=== PATIENT | male | born 1980 | race Hispanic/Latino ===

== ENCOUNTER 2019-03-05 14:40 | Observation (INO) | payer SELFPAY ==
[2019-03-05 15:20] LABS: Basophils % (Auto) 0.5 % (0.0-1.8); Eosinophils # (Auto) 0.2 K/mm3 (0.0-0.4); Eosinophils % (Auto) 2.4 % (0.0-4.3); Hematocrit 44.9 % (35.5-45.6); Hemoglobin 15.4 gm/dl (11.8-15.2); Lymphocytes # (Auto) 1.6 K/mm3 (1.2-5.4); Lymphocytes % (Auto) 20.5 % (13.4-35.0); Mean Corpuscular HGB Conc 34 % (32-34); Mean Corpuscular Volume 91 fl (84-94); Monocytes # (Auto) 0.5 K/mm3 (0.0-0.8); Monocytes % (Auto) 7.1 % (0.0-7.3); Platelet Count 324 K/mm3 (140-440); Red Blood Count 4.96 M/mm3 (3.65-5.03); Red Cell Distribution Width 13.2 % (13.2-15.2)
--- NOTE | 2019-03-05 15:24 | XRay Report ---
CHEST 1 VIEW 2:57 PM INDICATION / CLINICAL INFORMATION: Respiratory arrest. COMPARISON: None available. FINDINGS: SUPPORT DEVICES: None. HEART / MEDIASTINUM: The heart size and pulmonary vasculature are normal. LUNGS / PLEURA: No significant pulmonary or pleural abnormality. No pneumothorax. ADDITIONAL FINDINGS: There is mild gaseous distention of the stomach. IMPRESSION: No acute pulmonary disease. Signer Name: Maxx Rodriguez MD Signed: 03/05/2019 3:20 PM Workstation Name: [id number]
[2019-03-05 15:30] LABS: INR 1.03 (0.87-1.13)
[2019-03-05 15:31] LABS: Partial Thromboplastin Time 26.4 Sec. (24.2-36.6)
[2019-03-05 15:42] LABS: Alanine Aminotransferase 26 units/L (7-56); Albumin 4.2 g/dL (3.9-5); BUN/Creatinine Ratio 7; Blood Urea Nitrogen 10 mg/dL (9-20); Calcium 8.6 mg/dL (8.4-10.2); Hemolysis Index 30
--- NOTE | 2019-03-05 16:26 | Emergency Department Report ---
ED General Adult HPI - General Chief complaint: Altered Mental Status Stated complaint: OVERDOSE Time Seen by Provider: 03/05/19 14:59 Source: EMS Mode of arrival: Stretcher Limitations: No Limitations - History of Present Illness Initial comments: The patient presents to the emergency department via EMS for chief complaint cardiac arrest. Patient was found laying down a parking lot of [place] when police were notified. Upon their arrival the patient had no pulse and was unresponsive and chest compressions were started. Patient had return of s pontaneous circulation secondary to chest compressions. Upon EMS arrival the patient's glucose was less than 30 which was treated by EMS. Patient was also given 1 mg of Narcan and became more responsive. Patient is arousable to sternal rub but otherwise obtunded. -: Sudden Improves with: none Worsens with: none Associated Symptoms: denies other symptoms Treatments Prior to Arrival: none - Related Data Allergies Allergy/AdvReac Type Severity Reaction Status Date / Time No Known Allergies Allergy Verified 03/05/19 17:40 ED Review of Systems ROS: Stated complaint: OVERDOSE Other details as noted in HPI Comment: Unobtainable due to pts medical conditions ED Past Medical Hx - Past Medical History Previous Medical History?: No - Surgical History Past Surgical History?: No - Social History Smoking Status: Unknown if ever smoked Substance Use Type: None ED Physical Exam - General Limitations: No Limitations General appearance: obtunded - Head Head exam: Present: atraumatic, normocephalic - Eye Eye exam: Present: other (pinpoint pupils) - ENT ENT exam: Present: mucous membranes dry - Respiratory Respiratory exam: Present: other (diminished breath sounds throughout) - Cardiovascular Cardiovascular Exam: Present: normal rhythm, tachycardia - GI/Abdominal GI/Abdominal exam: Present: soft, normal bowel sounds. Absent: distended, tenderness - Neurological Exam Neurological exam: Present: other (patient is obtunded and arousable to sternal rub) - Psychiatric Psychiatric exam: Present: other (not able to completely assess due to patient's condition) - Skin Skin exam: Present: warm, dry, intact, normal color. Absent: rash ED Course Vital Signs 03/05/19 03/05/19 03/05/19 14:36 14:40 14:46 Pulse Rate 113 H 105 H 102 H Respiratory 15 20 26 H Rate Blood Pressure 143/95 143/95 Blood Pressure [Right] O2 Sat by Pulse 95 96 Oximetry 03/05/19 03/05/19 03/05/19 15:13 15:15 15:22 Pulse Rate 98 H 99 H 90 Respiratory 24 20 Rate Blood Pressure 136/89 Blood Pressure 136/89 [Right] O2 Sat by Pulse 96 95 Oximetry 03/05/19 03/05/19 03/05/19 15:30 15:45 16:10 Pulse Rate 97 H 96 H Respiratory 23 25 H Rate Blood Pressure 126/87 127/76 136/89 Blood Pressure [Right] O2 Sat by Pulse 97 96 96 Oximetry 03/05/19 03/05/19 03/05/19 16:15 16:30 16:45 Pulse Rate Respiratory Rate Blood Pressure 118/70 122/64 131/60 Blood Pressure [Right] O2 Sat by Pulse Oximetry 03/05/19 03/05/19 03/05/19 17:14 17:15 17:30 Pulse Rate 98 H 91 H 95 H Respiratory 17 22 Rate Blood Pressure 131/60 120/65 111/75 Blood Pressure [Right] O2 Sat by Pulse 88 96 Oximetry 03/05/19 03/05/19 03/05/19 18:00 18:30 19:40 Pulse Rate 88 100 H 98 H Respiratory 24 24 22 Rate Blood Pressure 120/78 107/48 Blood Pressure 132/73 [Right] O2 Sat by Pulse 99 95 94 Oximetry ED Medical Decision Making - Lab Data Result diagrams: 03/05/19 14:45 03/05/19 14:45 Lab Results 03/05/19 03/05/19 03/05/19 Range/Units 14:45 14:45 14:45 WBC 7.7 (4.5-11.0) K/mm3 RBC 4.96 (3.65-5.03) M/mm3 Hgb 15.4 H (11.8-15.2) gm/dl Hct 44.9 (35.5-45.6) % MCV 91 (84-94) fl MCH 31 (28-32) pg MCHC 34 (32-34) % RDW 13.2 (13.2-15.2) % Plt Count 324 (140-440) K/mm3 Lymph % (Auto) 20.5 (13.4-35.0) % Sebastian % (Auto) 7.1 (0.0-7.3) % Eos % (Auto) 2.4 (0.0-4.3) % Baso % (Auto) 0.5 (0.0-1.8) % Lymph # 1.6 (1.2-5.4) K/mm3 Sebastian # 0.5 (0.0-0.8) K/mm3 Eos # 0.2 (0.0-0.4) K/mm3 Baso # 0.0 (0.0-0.1) K/mm3 Seg Neutrophils % 69.5 (40.0-70.0) % Seg Neutrophils # 5.4 (1.8-7.7) K/mm3 PT 13.6 (12.2-14.9) Sec. INR 1.03 (0.87-1.13) APTT 26.4 (24.2-36.6) Sec. Sodium 138 (137-145) mmol/L Potassium 4.2 (3.6-5.0) mmol/L Chloride 97.0 L (98-107) mmol/L Carbon Dioxide 27 (22-30) mmol/L Anion Gap 18 mmol/L BUN 10 (9-20) mg/dL Creatinine 1.5 (0.8-1.5) mg/dL Estimated GFR 52 ml/min BUN/Creatinine Ratio 7 % Glucose 345 H (75-100) mg/dL Calcium 8.6 (8.4-10.2) mg/dL Total Bilirubin 0.20 (0.1-1.2) mg/dL AST 37 (5-40) units/L ALT 26 (7-56) units/L Alkaline Phosphatase 70 (35-129) units/L Total Creatine Kinase (55-170) units/L Troponin T < 0.010 (0.00-0.029) ng/mL NT-Pro-B Natriuret Pep 146.0 (0-450) pg/mL Total Protein 7.0 (6.3-8.2) g/dL Albumin 4.2 (3.9-5) g/dL Albumin/Globulin Ratio 1.5 % Salicylates (2.8-20.0) mg/dL Acetaminophen (10.0-30.0) ug/mL Plasma/Serum Alcohol (0-0.07) % 01/29/20 01/29/20 01/29/20 Range/Units 14:45 14:45 14:45 WBC (4.5-11.0) K/mm3 RBC (3.65-5.03) M/mm3 Hgb (11.8-15.2) gm/dl Hct (35.5-45.6) % MCV (84-94) fl MCH (28-32) pg MCHC (32-34) % RDW (13.2-15.2) % Plt Count (140-440) K/mm3 Lymph % (Auto) (13.4-35.0) % Sebastian % (Auto) (0.0-7.3) % Eos % (Auto) (0.0-4.3) % Baso % (Auto) (0.0-1.8) % Lymph # (1.2-5.4) K/mm3 Sebastian # (0.0-0.8) K/mm3 Eos # (0.0-0.4) K/mm3 Baso # (0.0-0.1) K/mm3 Seg Neutrophils % (40.0-70.0) % Seg Neutrophils # (1.8-7.7) K/mm3 PT (12.2-14.9) Sec. INR (0.87-1.13) APTT (24.2-36.6) Sec. Sodium (137-145) mmol/L Potassium (3.6-5.0) mmol/L Chloride (98-107) mmol/L Carbon Dioxide (22-30) mmol/L Anion Gap mmol/L BUN (9-20) mg/dL Creatinine (0.8-1.5) mg/dL Estimated GFR ml/min BUN/Creatinine Ratio % Glucose (75-100) mg/dL Calcium (8.4-10.2) mg/dL Total Bilirubin (0.1-1.2) mg/dL AST (5-40) units/L ALT (7-56) units/L Alkaline Phosphatase (35-129) units/L Total Creatine Kinase 921 H (55-170) units/L Troponin T (0.00-0.029) ng/mL NT-Pro-B Natriuret Pep (0-450) pg/mL Total Protein (6.3-8.2) g/dL Albumin (3.9-5) g/dL Albumin/Globulin Ratio % Salicylates < 0.3 L (2.8-20.0) mg/dL Acetaminophen < 5.0 L (10.0-30.0) ug/mL Plasma/Serum Alcohol (0-0.07) % 03/05/19 03/05/19 Range/Units 14:45 16:23 WBC (4.5-11.0) K/mm3 RBC (3.65-5.03) M/mm3 Hgb (11.8-15.2) gm/dl Hct (35.5-45.6) % MCV (84-94) fl MCH (28-32) pg MCHC (32-34) % RDW (13.2-15.2) % Plt Count (140-440) K/mm3 Lymph % (Auto) (13.4-35.0) % Sebastian % (Auto) (0.0-7.3) % Eos % (Auto) (0.0-4.3) % Baso % (Auto) (0.0-1.8) % Lymph # (1.2-5.4) K/mm3 Sebastian # (0.0-0.8) K/mm3 Eos # (0.0-0.4) K/mm3 Baso # (0.0-0.1) K/mm3 Seg Neutrophils % (40.0-70.0) % Seg Neutrophils # (1.8-7.7) K/mm3 PT (12.2-14.9) Sec. INR (0.87-1.13) APTT (24.2-36.6) Sec. Sodium (137-145) mmol/L Potassium (3.6-5.0) mmol/L Chloride (98-107) mmol/L Carbon Dioxide (22-30) mmol/L Anion Gap mmol/L BUN (9-20) mg/dL Creatinine (0.8-1.5) mg/dL Estimated GFR ml/min BUN/Creatinine Ratio % Glucose (75-100) mg/dL Calcium (8.4-10.2) mg/dL Total Bilirubin (0.1-1.2) mg/dL AST (5-40) units/L ALT (7-56) units/L Alkaline Phosphatase (35-129) units/L Total Creatine Kinase (55-170) units/L Troponin T 0.016 (0.00-0.029) ng/mL NT-Pro-B Natriuret Pep (0-450) pg/mL Total Protein (6.3-8.2) g/dL Albumin (3.9-5) g/dL Albumin/Globulin Ratio % Salicylates (2.8-20.0) mg/dL Acetaminophen (10.0-30.0) ug/mL Plasma/Serum Alcohol < 0.01 (0-0.07) % - EKG Data -: EKG Interpreted by Me EKG shows normal: sinus rhythm Rate: normal - Radiology Data Radiology results: report reviewed - Medical Decision Making On repeat examination 7:15 PM the patient is completely alert and oriented 3 Will be admitted for further evaluation and monitoring secondary to patient's cardiac arrest was likely secondary to drug overdose Critical Care Time: Yes Critical care time in (mins) excluding proc time.: 35 Critical care attestation.: If time is entered above; I have spent that time in minutes in the direct care of this critically ill patient, excluding procedure time. ED Disposition Clinical Impression: Cardiac arrest, Drug overdose Disposition: [id number] OP ADMIT IP TO THIS HOSP Is pt being admited?: Yes Does the pt Need Aspirin: No Condition: Fair
--- NOTE | 2019-03-05 16:53 | Cat Scan Report ---
CT head/brain wo con INDICATION / CLINICAL INFORMATION: 38 years Male; unresponsive. TECHNIQUE: Routine CT head without contrast. All CT scans at this location are performed using CT dos e reduction for ALARA by means of automated exposure control. COMPARISON: None. FINDINGS: BRAIN / INTRACRANIAL CONTENTS: No acute hemorrhage, mass effect, midline shift, hydrocephalus, or acu te, large territorial infarct. No chronic infarct or atrophy appreciated. No significant white matter abnormality. CRANIOCERVICAL JUNCTION: No significant abnormality. ORBITS: No significant abnormality of visualized orbits. SINUSES / MASTOIDS: Small mucous retention cyst/polyp seen in the right maxillary antrum. There is mi ld mucosal thickening in the ethmoids. ADDITIONAL FINDINGS: None. IMPRESSION: 1. No focal mass, hemorrhage, hydrocephalus, or acute, large territorial infarct. Signer Name: Lee Thornton MD, III Signed: 03/05/2019 4:49 PM Workstation Name: [id number]
--- NOTE | 2019-03-05 17:40 | Cat Scan Report ---
CT cervical spine wo con INDICATION / CLINICAL INFORMATION: 38 years Male; unresponsive/injury. TECHNIQUE: Axial CT images of the cervical spine were obtained. Sagittal and coronal reformatted images were pr oduced. All CT scans at this location are performed using CT dose reduction for ALARA by means of aut omated exposure control. COMPARISON: None available. FINDINGS: POST-SURGICAL CHANGES: None. ALIGNMENT: Normal cervical lordosis seen without significant scoliosis. VERTEBRAE: No signs of fracture. Vertebral bodies are grossly normal in height throughout. Mild osse ous foraminal narrowing seen on the left at C3-4 from facet hypertrophy. No significant osseous emma inal narrowing appreciated on the right. Anterior spondylosis seen at C4-5 and C5-C6, as well as C6-7. INTRAVERTEBRAL DISCS: Minimal disc disease seen at various levels with no dominant herniation. Overal l, no significant canal stenosis noted. PARASPINAL SOFT TISSUES: No significant abnormality. ADDITIONAL FINDINGS: Mucous retention cyst/polyp seen in the right maxillary antrum. There is mild to moderate mucosal thickening in the mastoids on the left. IMPRESSION: 1. No signs of acute bony trauma to the cervical spine. Signer Name: Lee Thornton MD, III Signed: 03/05/2019 5:36 PM Workstation Name: [email or web address]
[2019-03-05] MEDS ORDERED: SODIUM CHLORIDE 0.9% 1000 ML 2,000 ML ONE (17:41)
[2019-03-05] MEDS ORDERED: SODIUM CHLORIDE 0.9% 1000 ML 1,000 ML IV ONE ×2 (17:43)
[2019-03-05 20:39] LABS: Bilirubin,Urine NEG (Negative); Blood,Urine MOD (Negative); Color,Urine Yellow (Yellow); Mucus,Urine FEW /HPF; Protein,Urine <15 mg/dL mg/dL (Negative); Urobilinogen,Urine < 2.0 mg/dL (<2.0)
[2019-03-05 20:43] LABS: Benzodiazepines Screen,Urine PRESUMPTIVE NEGATIVE; Cocaine Screen,Urine PRESUMPTIVE NEGATIVE; Methadone Screen,Urine PRESUMPTIVE NEGATIVE; Opiate Screen,Urine PRESUMPTIVE NEGATIVE
[2019-03-05 20:55] LABS: Amphetamine Screen,Urine PRESUMPTIVE POSITIVE; Cannabinoid Screen,Urine PRESUMPTIVE POSITIVE
[2019-03-05] MEDS ORDERED: ONDANSETRON 4 MG/2 ML INJ IV PRN (21:36)
[2019-03-05] MEDS ORDERED: ACETAMINOPHEN 325 MG TAB PO PRN (21:36)
[2019-03-05] MEDS ORDERED: DEXTROSE 50% IN WATER (25GM) 50 ML SYRINGE IV PRN (21:36)
[2019-03-05] MEDS ORDERED: SODIUM CHLORIDE 0.9% 1000 ML 1,000 ML IV SCH (21:45)
--- NOTE | 2019-03-05 21:52 | History and Physical Report ---
History of Present Illness Date of examination: 03/05/19 Date of admission: 03/05/19 20:04 Chief complaint: Cardiac arrest, suspicion of drug overdose History of present illness: 38-year-old male with no known medical history was found unresponsive with no pulse in [facility] parking lot. EMS performed chest compressions and there was return of spontaneous circulation secondary to chest compressions. Patient was transported to our facility for further evaluation and treatment. Upon arrival to our facility patient was unable to provide much details. Upon further reassessment patient is now more responsive. At the time of my examination patient is in stretcher and resting. He appears to be drowsy but easily aroused. He is able to answer questions and provide history. 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 He denies history of hypertension, diabetes, heart failure, or cardiac disease. Patient states he met a friend at the [facility] and complained of chronic pain and his friend gave him " a blue pill", at the time patient thought was some sort of muscle relaxer anti-inflammatory medication. Patient does not recall passing out and the next thing he recalls is waking up in the hospital. Patient was asked specifically about recreational drug use/abuse and prescription drug use/abuse, and he denies both. Will admit for further observation and consult cardiology given recent events. Past History Past Medical History: No medical history Past Surgical History: No surgical history Social history: smoking (smokes half a pack per day) Family history: no significant family history Medications and Allergies Allergies Allergy/AdvReac Type Severity Reaction Status Date / Time No Known Allergies Allergy Verified 03/05/19 17:40 Active Meds: Active Medications Acetaminophen (Tylenol) 650 mg PO Q4H PRN PRN Reason: Pain MILD(1-3)/Fever >100.5/WATTS Dextrose (D50w (25gm) Syringe) 0 ml IV Q30MIN PRN; Protocol PRN Reason: Hypoglycemia Docusate Sodium (Colace) 100 mg PO BID MILA Heparin Sodium (Porcine) (Heparin) 5,000 unit SUB-Q Q12HR MILA Sodium Chloride (Nacl 0.9% 1000 Ml) 1,000 mls @ 100 mls/hr IV DIRECT MILA Stop: 03/06/19 12:00 Insulin Human Lispro (Humalog) 0 unit SUB-Q ACHS MILA; Protocol Ondansetron HCl (Zofran) 4 mg IV Q8H PRN PRN Reason: Nausea And Vomiting Sodium Chloride (Sodium Chloride Flush Syringe 10 Ml) 10 ml IV BID MILA Sodium Chloride (Sodium Chloride Flush Syringe 10 Ml) 10 ml IV PRN PRN PRN Reason: LINE FLUSH Review of Systems All systems: negative Constitutional: fatigue, weakness Exam - Physical Exam Narrative exam: Physical exam General appearance: Present: No acute distress, drowsy easily aroused, well-developed, well-nourished, adult male - EENT Eyes: Present: PERRL, EOM intact ENT: hearing intact, normal dentition - Neck Neck: Present: supple, normal ROM - Respiratory Respiratory effort: Non-labored Respiratory: Clear throughout - Cardiovascular Heart rate: 98 (bpm) Rhythm: Sinus rhythm Heart Sounds: Present: S1 & S2. Absent: rub, click - Extremities Extremities: no ischemia, pulses intact, - Peripheral Assessment Peripheral Pulses: within normal limits - Abdominal General gastrointestinal: soft, non-tender, normal bowel sounds - Integumentary Integumentary: Present: warm, dry - Musculoskeletal Musculoskeletal: Able to move all extremities -Neurological Neurological: CN II-XII intact - Psychiatric Psychiatric: cooperative - Constitutional Vitals: Temp Pulse Resp BP Pulse Ox 98 H 22 132/73 94 03/05/19 19:40 03/05/19 19:40 03/05/19 19:40 03/05/19 19:40 RONALDO score - Ronaldo Score Age > 65: (0) No Aspirin use within the Past 7 Days: (0) No 3 or more CAD Risk Factors: (0) No 2 or more Angina events in past 24 hrs: (0) No Known CAD with more than 50% Stenosis: (0) No Elevated Cardiac Markers: (0) No ST Deviation Greater than 0.5mm: (0) No RONALDO Score: 0 Results - Labs CBC & Chem 7: 03/05/19 14:45 03/05/19 14:45 Labs: Laboratory Last Values WBC 7.7 K/mm3 (4.5-11.0) 03/05/19 14:45 RBC 4.96 M/mm3 (3.65-5.03) 03/05/19 14:45 Hgb 15.4 gm/dl (11.8-15.2) H 03/05/19 14:45 Hct 44.9 % (35.5-45.6) 03/05/19 14:45 MCV 91 fl (84-94) 03/05/19 14:45 MCH 31 pg (28-32) 03/05/19 14:45 MCHC 34 % (32-34) 03/05/19 14:45 RDW 13.2 % (13.2-15.2) 03/05/19 14:45 Plt Count 324 K/mm3 (140-440) 03/05/19 14:45 Lymph % (Auto) 20.5 % (13.4-35.0) 03/05/19 14:45 [place] % (Auto) 7.1 % (0.0-7.3) 03/05/19 14:45 Eos % (Auto) 2.4 % (0.0-4.3) 03/05/19 14:45 Baso % (Auto) 0.5 % (0.0-1.8) 03/05/19 14:45 Lymph # 1.6 K/mm3 (1.2-5.4) 03/05/19 14:45 [place] # 0.5 K/mm3 (0.0-0.8) 03/05/19 14:45 Eos # 0.2 K/mm3 (0.0-0.4) 03/05/19 14:45 Baso # 0.0 K/mm3 (0.0-0.1) 03/05/19 14:45 Seg Neutrophils % 69.5 % (40.0-70.0) 03/05/19 14:45 Seg Neutrophils # 5.4 K/mm3 (1.8-7.7) 03/05/19 14:45 PT 13.6 Sec. (12.2-14.9) 03/05/19 14:45 INR 1.03 (0.87-1.13) 03/05/19 14:45 APTT 26.4 Sec. (24.2-36.6) 03/05/19 14:45 Sodium 138 mmol/L (137-145) 03/05/19 14:45 Potassium 4.2 mmol/L (3.6-5.0) 03/05/19 14:45 Chloride 97.0 mmol/L (98-107) L 03/05/19 14:45 Carbon Dioxide 27 mmol/L (22-30) 03/05/19 14:45 Anion Gap 18 mmol/L 03/05/19 14:45 BUN 10 mg/dL (9-20) 03/05/19 14:45 Creatinine 1.5 mg/dL (0.8-1.5) 03/05/19 14:45 Estimated GFR 52 ml/min 03/05/19 14:45 BUN/Creatinine Ratio 7 % 03/05/19 14:45 Glucose 345 mg/dL (75-100) H 03/05/19 14:45 Calcium 8.6 mg/dL (8.4-10.2) 03/05/19 14:45 Total Bilirubin 0.20 mg/dL (0.1-1.2) 03/05/19 14:45 AST 37 units/L (5-40) 03/05/19 14:45 ALT 26 units/L (7-56) 03/05/19 14:45 Alkaline Phosphatase 70 units/L (35-129) 03/05/19 14:45 Total Creatine Kinase 921 units/L (55-170) H 03/05/19 14:45 Troponin T 0.016 ng/mL (0.00-0.029) 03/05/19 16:23 NT-Pro-B Natriuret Pep 146.0 pg/mL (0-450) 03/05/19 14:45 Total Protein 7.0 g/dL (6.3-8.2) 03/05/19 14:45 Albumin 4.2 g/dL (3.9-5) 03/05/19 14:45 Albumin/Globulin Ratio 1.5 % 03/05/19 14:45 Urine Color Yellow (Yellow) 03/05/19 20:20 Urine Turbidity Slightly-cloudy (Clear) 03/05/19 20:20 Urine pH 5.0 (5.0-7.0) 03/05/19 20:20 Ur Specific [place] 1.018 (1.003-1.030) 03/05/19 20:20 Urine Protein <15 mg/dl mg/dL (Negative) 03/05/19 20:20 Urine Glucose (UA) >=500 mg/dL (Negative) 03/05/19 20:20 Urine Ketones Tr mg/dL (Negative) 03/05/19 20:20 Urine Blood Mod (Negative) 03/05/19 20:20 Urine Nitrite Neg (Negative) 03/05/19 20:20 Urine Bilirubin Neg (Negative) 03/05/19 20:20 Urine Urobilinogen < 2.0 mg/dL (<2.0) 03/05/19 20:20 Ur Leukocyte Esterase Neg (Negative) 03/05/19 20:20 Urine WBC (Auto) 11.0 /HPF (0.0-6.0) H 03/05/19 20:20 Urine RBC (Auto) 83.0 /HPF (0.0-6.0) 03/05/19 20:20 Urine Mucus Few /HPF 03/05/19 20:20 Salicylates < 0.3 mg/dL (2.8-20.0) L 03/05/19 14:45 Urine Opiates Screen Presumptive negative 03/05/19 20:20 Urine Methadone Screen Presumptive negative 03/05/19 20:20 Acetaminophen < 5.0 ug/mL (10.0-30.0) L 03/05/19 14:45 Ur Barbiturates Screen Presumptive negative 03/05/19 20:20 Ur Phencyclidine Scrn Presumptive negative 03/05/19 20:20 Ur Amphetamines Screen Presumptive positive 03/05/19 20:20 U Benzodiazepines Scrn Presumptive negative 03/05/19 20:20 Urine Cocaine Screen Presumptive negative 03/05/19 20:20 U Marijuana (THC) Screen Presumptive positive 03/05/19 20:20 Drugs of Abuse Note Disclamer 03/05/19 20:20 Plasma/Serum Alcohol < 0.01 % (0-0.07) 03/05/19 14:45 - Imaging and Cardiology Imaging and Cardiology: CXR: FINDINGS: SUPPORT DEVICES: None. HEART / MEDIASTINUM: The heart size and pulmonary vasculature are normal. LUNGS / PLEURA: No significant pulmonary or pleural abnormality. No pneumothorax. ADDITIONAL FINDINGS: There is mild gaseous distention of the stomach. IMPRESSION: No acute pulmonary disease. CT Cervical Spine: FINDINGS: POST-SURGICAL CHANGES: None. ALIGNMENT: Normal cervical lordosis seen without significant scoliosis. VERTEBRAE: No signs of fracture. Vertebral bodies are grossly normal in height throughout. Mild osseous foraminal narrowing seen on the left at C3-4 from facet hypertrophy. No significant osseous foraminal narrowing appreciated on the right. Anterior spondylosis seen at C4-5 and C5-C6, as well as C6-7. INTRAVERTEBRAL DISCS: Minimal disc disease seen at various levels with no dominant herniation. Overall, no significant canal stenosis noted. PARASPINAL SOFT TISSUES: No significant abnormality. ADDITIONAL FINDINGS: Mucous retention cyst/polyp seen in the right maxillary antrum. There is mild to moderate mucosal thickening in the mastoids on the left. IMPRESSION: 1. No signs of acute bony trauma to the cervical spine. CT Head/Brain: FINDINGS: BRAIN / INTRACRANIAL CONTENTS: No acute hemorrhage, mass effect, midline shift, hydrocephalus, or acute, large territorial infarct. No chronic infarct or atrophy appreciated. No significant white matter abnormality. CRANIOCERVICAL JUNCTION: No significant abnormality. ORBITS: No significant abnormality of visualized orbits. SINUSES / MASTOIDS: Small mucous retention cyst/polyp seen in the right maxillary antrum. There is mild mucosal thickening in the ethmoids. ADDITIONAL FINDINGS: None. IMPRESSION: 1. No focal mass, hemorrhage, hydrocephalus, or acute, large territorial infarct. Assessment and Plan Assessment and plan: 38-year-old male with no known medical history was found unresponsive with no pulse in [facility] parking lot. Post cardiac arrest -Found unresponsive with no pulse in [employer] parking lot -Return of spontaneous circulation secondary to chest compressions -Troponin negative x2, will continue to trend -Denies cardiac history -Cardiology consulted Acute encephalopathy -CT head, CT cervical spine, and CXR negative -Afebrile, no leukocytosis -Blood cultures pending -Neuro checks Suspicion of drug overdose -UDS positive for amphetamines and marijuana -Found unresponsive with no pulse in [employer] parking lot -Admits to taking a "blue pill" that friend gave him -Denies recreational drug use -Denies prescription drug abuse -Continue supportive care Hyperglycemia -BG 345 on admission -Denies history of diabetes -POC BG monitoring -SSI coverage prn -HgbA1C pending Tobacco abuse -Current every day smoker -Smokes half a pack per day -Counseled for cessation -Nicotine patch when necessary DVT PPX -on Heparin Advance Directives: No VTE prophylaxis?: Chemical Plan of care discussed with patient/family: Yes
[2019-03-05] MEDS ORDERED: SODIUM CHLORIDE 0.9% 1000 ML 1,000 ML ONE (23:22)
[2019-03-05] MEDS: INSULIN LISPRO 100 UNIT/ML SUB-Q SCH (23:37)
[2019-03-05] MEDS: HEPARIN 5,000 UNIT/1 ML VIAL SUB-Q SCH (23:38)
[2019-03-05] MEDS: DOCUSATE SODIUM 100 MG CAP PO SCH (23:39)
[2019-03-06 02:52] LABS: Basophils % (Auto) 0.2 % (0.0-1.8); Eosinophils # (Auto) 0.2 K/mm3 (0.0-0.4); Eosinophils % (Auto) 1.2 % (0.0-4.3); Hematocrit 41.7 % (35.5-45.6); Hemoglobin 14.1 gm/dl (11.8-15.2); Lymphocytes # (Auto) 1.4 K/mm3 (1.2-5.4); Lymphocytes % (Auto) 8.9 % (13.4-35.0); Mean Corpuscular HGB Conc 34 % (32-34); Mean Corpuscular Volume 90 fl (84-94); Monocytes # (Auto) 0.7 K/mm3 (0.0-0.8); Monocytes % (Auto) 4.5 % (0.0-7.3); Platelet Count 297 K/mm3 (140-440); Red Blood Count 4.63 M/mm3 (3.65-5.03); Red Cell Distribution Width 13.1 % (13.2-15.2)
[2019-03-06 03:05] LABS: BUN/Creatinine Ratio 8; Blood Urea Nitrogen 9 mg/dL (9-20); Calcium 8.3 mg/dL (8.4-10.2); Hemolysis Index 4
[2019-03-06] MEDS: INSULIN LISPRO 100 UNIT/ML SUB-Q SCH ×2 (10:13→11:36)
[2019-03-06] MEDS: DOCUSATE SODIUM 100 MG CAP PO SCH (10:14)
[2019-03-06] MEDS: HEPARIN 5,000 UNIT/1 ML VIAL SUB-Q SCH (10:14)
--- NOTE | 2019-03-06 11:30 | Consultation ---
History of Present Illness Consult date: 03/06/19 Consult reason: cardiac arrest History of present illness: This is a 38-year old male with no prior medical history who was brought to this hospital after he was found unresponsive in the parking lot. CPR was initiated with ROSC. Patient was also given 1 mg of Narcan and became more responsive. Patient did not require intubation. On presentation, a head CT scan reports no acute intracranial abnormality. Chest x-ray was negative. Urine toxicology was positive for amphetamines and THC. An ECG is benign, normal sinus rhythm. No acute ischemic changes. A cardiology consultation has been requested for further evaluation. Past History Past Medical History: No medical history Past Surgical History: No surgical history Social history: smoking (smokes half a pack per day) Family history: no significant family history Medications and Allergies Allergies Allergy/AdvReac Type Severity Reaction Status Date / Time No Known Allergies Allergy Verified 03/05/19 17:40 Active Meds: Active Medications Acetaminophen (Tylenol) 650 mg PO Q4H PRN PRN Reason: Pain MILD(1-3)/Fever >100.5/WATTS Dextrose (D50w (25gm) Syringe) 0 ml IV Q30MIN PRN; Protocol PRN Reason: Hypoglycemia Docusate Sodium (Colace) 100 mg PO BID [facility] Last Admin: 03/06/19 10:14 Dose: 100 mg Documented by: Heparin Sodium (Porcine) (Heparin) 5,000 unit SUB-Q Q12HR [facility] Last Admin: 03/06/19 10:14 Dose: 5,000 unit Documented by: Sodium Chloride (Nacl 0.9% 1000 Ml) 1,000 mls @ 100 mls/hr IV DIRECT [facility] Stop: 03/06/19 12:00 Last Admin: 03/05/19 23:26 Dose: 100 mls/hr Documented by: Levofloxacin/Dextrose (Levaquin 500mg/100ml) 500 mg in 100 mls @ 100 mls/hr IV Q24HR [facility]; Protocol Last Admin: 03/06/19 10:13 Dose: 100 mls/hr Documented by: Insulin Human Lispro (Humalog) 0 unit SUB-Q ACHS [facility]; Protocol Last Admin: 03/06/19 10:13 Dose: Not Given Documented by: Ondansetron HCl (Zofran) 4 mg IV Q8H PRN PRN Reason: Nausea And Vomiting Sodium Chloride (Sodium Chloride Flush Syringe 10 Ml) 10 ml IV BID [facility] Last Admin: 03/06/19 10:13 Dose: 10 ml Documented by: Sodium Chloride (Sodium Chloride Flush Syringe 10 Ml) 10 ml IV PRN PRN PRN Reason: LINE FLUSH Physical Examination Vital Signs Pulse Resp 113 H 15 03/05/19 14:36 03/05/19 14:36 General appearance: no acute distress HEENT: Positive: PERRL Neck: Positive: trachea midline Cardiac: Positive: Reg Rate and Rhythm Lungs: Positive: Decreased Breath Sounds Neuro: Positive: Grossly Intact Extremities: Absent: edema Results 03/06/19 02:40 03/06/19 02:40 Cardiac Enzymes 03/05/19 Range/Units 14:45 AST 37 (5-40) units/L Coagulation 03/05/19 Range/Units 14:45 PT 13.6 (12.2-14.9) Sec. INR 1.03 (0.87-1.13) APTT 26.4 (24.2-36.6) Sec. CBC 03/05/19 03/06/19 Range/Units 14:45 02:40 WBC 7.7 15.4 H (4.5-11.0) K/mm3 RBC 4.96 4.63 (3.65-5.03) M/mm3 Hgb 15.4 H 14.1 (11.8-15.2) gm/dl Hct 44.9 41.7 (35.5-45.6) % Plt Count 324 297 (140-440) K/mm3 Lymph # 1.6 1.4 (1.2-5.4) K/mm3 [place] # 0.5 0.7 (0.0-0.8) K/mm3 Eos # 0.2 0.2 (0.0-0.4) K/mm3 Baso # 0.0 0.0 (0.0-0.1) K/mm3 Comprehensive Metabolic Panel 03/05/19 03/06/19 Range/Units 14:45 02:40 Sodium 138 137 (137-145) mmol/L Potassium 4.2 3.6 (3.6-5.0) mmol/L Chloride 97.0 L 101.3 (98-107) mmol/L Carbon Dioxide 27 27 (22-30) mmol/L BUN 10 9 (9-20) mg/dL Creatinine 1.5 1.2 (0.8-1.5) mg/dL Glucose 345 H 88 (75-100) mg/dL Calcium 8.6 8.3 L (8.4-10.2) mg/dL AST 37 (5-40) units/L ALT 26 (7-56) units/L Alkaline Phosphatase 70 (35-129) units/L Total Protein 7.0 (6.3-8.2) g/dL Albumin 4.2 (3.9-5) g/dL Assessment and Plan Suspected drug overdose We will obtain an echocardiogram for LVEF assessment.
--- NOTE | 2019-03-06 15:58 | Discharge Summary ---
Providers - Providers Date of Admission: 03/05/19 20:04 Date of discharge: 03/06/19 Attending physician: RAFAEL GARCIA 03/05/19 21:36 Consult to Physician [CONS] Routine Comment: Consulting Provider: KEVEN DEL RIO Physician Instructions: Reason For Exam: post cardiac arrest [facility] Condition: Fair Pertinent studies: CXR Head CT Cervical spine CT Hospital course: This is a 38-year old male with no prior medical history who was brought to this hospital after he was found unresponsive in the parking lot. CPR was initiated with ROSC. Patient was also given 1 mg of Narcan and became more responsive. Patient did not require intubation. On presentation, a head CT scan reports no acute intracranial abnormality. Chest x-ray was negative. Urine toxicology was positive for amphetamines and THC. An ECG is benign, normal sinus rhythm. No acute ischemic changes. cardiology was consulted and concluded his clinical presentation from drug overdose. Discharge diagnosis and Mx: Post cardiac arrest, AAOx3 since admission, no chest pain, no CE elevation -Found unresponsive with no pulse in [facility] parking lot -Return of spontaneous circulation secondary to chest compressions -Troponin negative x2, UDS positive for amphetamin -Cardiology consulted, recommended outpt f/p with 2d echo Acute encephalopathy, resolved Drug overdose -UDS positive for amphetamines and marijuana -Admits to taking a "blue pill" that friend gave him -counseled Hyperglycemia, stress induced -BG 345 on admission -Denies history of diabetes -HgbA1C 5.2 Tobacco abuse -Current every day smoker -Smokes half a pack per day -Counseled for cessation DVT PPX -on Heparin Disposition: DC- TO HOME OR SELFCARE Time spent for discharge: 34 minutes Core Measure Documentation - Palliative Care Palliative Care/ Comfort Measures: Not Applicable - Core Measures Any of the following diagnoses?: none Exam - Constitutional Vitals: Temp Pulse Resp BP Pulse Ox 116 H 19 121/78 97 03/06/19 10:00 03/06/19 09:00 03/06/19 09:00 03/06/19 09:00 General appearance: Present: no acute distress, well-nourished - EENT Eyes: Present: PERRL ENT: hearing intact, clear oral mucosa - Neck Neck: Present: supple, normal ROM - Respiratory Respiratory effort: normal Respiratory: bilateral: CTA - Cardiovascular Heart Sounds: Present: S1 & S2. Absent: rub, click - Extremities Extremities: pulses symmetrical, No edema Peripheral Pulses: within normal limits - Abdominal General gastrointestinal: Present: soft, non-tender, non-distended, normal bowel sounds - Integumentary Integumentary: Present: clear, warm, dry - Musculoskeletal Musculoskeletal: gait normal, strength equal bilaterally - Psychiatric Psychiatric: appropriate mood/affect, intact judgment & insight - Neurologic Neurologic: CNII-XII intact, moves all extremities Plan Activity: advance as tolerated Weight Bearing Status: Weight Bear as Tolerated Diet: low fat, low salt Additional Instructions: 2d echocardiogram as outpt Follow up with: JOO CALDERON MD [Primary Care Provider] - 7 Days KEVEN DEL RIO MD [Staff Physician] - 7 Days
[2019-03-06 18:26] VITALS: BP 148/104
== END 2019-03-06 19:30 | disposition home or self-care (01) ==
LOC: EDBD → ED 14:40 → 3A 20:04 → IMCU 21:44 → 4A 03-06 09:39
PROVIDERS: ADMIT Internal Medicine; ATTEND Internal Medicine
DX: I46.9 Cardiac arrest, cause unspecified (principal); G93.40 Encephalopathy, unspecified; R73.9 Hyperglycemia, unspecified; F17.210 Nicotine dependence, cigarettes, uncomplicated
CPT/HCPCS: 36415; 70450; 71045; 72125; 80048; 80053; 80307; 81001; 82550; 82962; 83036; 83880; 84484; 85025; 85610; 85730; 87086; 93005; 93010; 96365; 96372; 99291; G0378; J1956; J7030; 80320; G0480